=== PATIENT | female | born 1995 | race Caucasian/White ===

== ENCOUNTER 2020-05-11 15:28 | Emergency (ER) | payer BC ==
[~2020-05-11] VITALS: Ht 154.9 cm; Wt 52.6 kg
[2020-05-11 15:52] VITALS: BP 104/69
--- NOTE | 2020-05-11 15:54 | NUR ---
ED Nurse Note: pt stated she ran into the door while she was looking down at her phone and cut her eyebrow. denies loc gave pt an icepack
--- NOTE | 2020-05-11 15:59 | Emergency Room Report ---
History of Present Illness General Chief Complaint: Puncture Wound Source: Patient Present Illness HPI Patient is a 25-year-old female presents after injury to her face. Injury occurred approximately 1 hour prior to arrival. Had no loss of consciousness. Patient stated she opened a car door and accidentally hit her face. Had no loss of consciousness. Denies any visual changes. Denies any nausea or vomiting. Does not know if she has any tetanus vaccine. Allergies: Coded Allergies: No Known Allergies (Unverified , 05/11/20) COVID-19 Screening COVID-19 risk:Contact w/high r: No Has patient experienced ram: No COVID-19 Testing performed SEARCH COORDINATOR: No Patient History Past Medical History: none Last Menstrual Period: 04/20 Reviewed Nursing Documentation: PMH: Agreed; PSxH: Agreed Nursing Documentation-PMH Past Medical History: No Stated History Review of Systems All Other Systems: negative except mentioned in HPI Physical Exam Vital Signs Date Time Temp Pulse Resp B/P (MAP) Pulse Ox O2 Delivery O2 Flow Rate FiO2 05/11/20 15:44 98.2 82 18 104/69 (81) 95 Room Air Sp02 EP Interpretation: reviewed, normal General Appearance: normal inspection, alert, no apparent distress, GCS 15 Head: normocephalic, atraumatic Eyes: normal eye exam, PERRL, EOMI, lids + conjunctiva normal, no hyphema, no racoon eyes, other - Right eyebrow laceration approximately 1/2 cm ENT: normal ENT inspection, TMs + canals normal, oropharynx normal, no ya signs Neck: trach midline, no bony tend, full range of motion without pain Respiratory: effort normal, no retractions, clear to auscultation, chest symmetrical, palpation of chest normal, speaking in full sentences Cardiovascular: regular rate, rhythm, no JVD Cardiovascular #2: 2+ radial (R), 2+ radial (L), 2+ dorsalis pedis (R), 2+ dorsalis pedis (L) Gastrointestinal: normal inspection, non-tender, non-distended, no rebound/guarding, normal bowel sounds Genitourinary: normal inspection Musculoskeletal: normal ROM, non-tender, back normal Skin: no rash, normal palpation, other - 0.5 cm laceration to right eyebrow Lymphatic: normal inspection Neurologic: oriented x3, sensory intact, motor strength/tone normal, normal speech Psychiatric: normal inspection, memory normal, mood normal, no suicidal/homicidal ideation Procedures Laceration/Wound Repair Laceration/Wound Repair : Wound Location: face Wound's Depth, Shape: superficial Wound Length (cm): 0 Wound Explored: clean Irrigated w/ Saline (ccs): 10 Wound Debrided: None Wound Repaired With: Dermabond Sterile Dressing Applied?: Yes Patient Tolerated: Well Complications: None Medical Decision Making Diagnostic Impression: Primary Impression: Facial laceration ER Course Patient presents for right-sided facial injury. Differential diagnosis included was not limited to foreign body, laceration, facial injury among others. Patient has a benign exam and does not appear to require any imaging or laboratory testing at this time. Patient was offered tetanus vaccine which she declined. Wound was closed with tissue glue. Patient was advised wound care precautions. Patient was advised to return if she had any new concerns. Patient is advised to have wound checked in 2 to 3 days. This medical record is generated with [employer] casting machine service operator software. There may be some casting machine service operator discrepancies related to use of this software Last Vital Signs Date Time Temp Pulse Resp B/P (MAP) Pulse Ox O2 Delivery O2 Flow Rate FiO2 05/11/20 15:52 98.2 18 104/69 95 Room Air 05/11/20 15:44 82 Status: improved Disposition: HOME, SELF-CARE Condition: Stable Scripts Acetaminophen* (ACETAMINOPHEN EXTRA STRENGTH*) 500 Mg Tablet 500 MG ORAL Q8H PRN for Fever/Headache/Mild Pain, #30 TAB Prov: Kosta Bee MD 05/11/20 Kosta Bee MD May 11, 2020 15:59
[2020-05-11] MEDS ORDERED: Tetanus/Diptheria/Pertussis IM ONE (16:00)
[2020-05-11] MEDS ORDERED: ACETAMINOPHEN500 M3 ORAL (16:06)
--- NOTE | 2020-05-11 16:06 | NUR ---
ED Nurse Note: pt refused tdap vaccine, wasted it in the pixis
--- NOTE | 2020-05-11 16:20 | NUR ---
ER DISCHARGE NOTE: Patient is cleared to be discharged per ERMD, pt is aox4, on room air, with stable vital signs. pt was given dc and prescription instructions, pt was able to verbalize understanding. pt is able to ambulate with steady gait. pt took all belongings.
== END 2020-05-11 16:20 | disposition home or self-care (01) ==
LOC: EMR 16:01
DX: S01.111A Laceration without foreign body of right eyelid and periocular area, initial encounter (principal); W22.8XXA Striking against or struck by other objects, initial encounter; Y93.89 Activity, other specified; Y92.810 Car as the place of occurrence of the external cause
CPT/HCPCS: 90471; 90715; 99282